=== PATIENT | male | born 1940 | race Caucasian/White ===

== ENCOUNTER 2019-01-19 03:33 | Inpatient (IN) | payer MEDICARE ==
[~2019-01-19] VITALS: Ht 157.5 cm; Wt 61.2 kg
[2019-01-19 05:49] VITALS: BP 114/68
[2019-01-19 07:58] VITALS: BP 106/58
--- NOTE | 2019-01-19 10:13 | NUR ---
Stacey consult called in via [facility], community integration specialist at 0800.
--- NOTE | 2019-01-19 10:57 | PDOC2 ---
GI CONSULT Reason For Consult: GI Bleed HPI: HPI: 78 y/o male transferred from [facility]. History from pt and (Laney). Yesterday passed bright and dark red blood w/ stool several times - last occurred around midnight. Had some dizziness. Denies n/v, abd pain, and melena. Labs at [facility]: Hgb 11, MCV 101, plt 86, INR 7.8, BUN 35, Cr 1.2, ALT 89. They say he was given vit K. Labs are pending here this morning. No reflux/heartburn, dysphagia, or weight loss. Increased appetite recently. No diarrhea. Has some constipation prior to bleeding that resolved w/ a stool softener. Previous EGD and several colonoscopies @ [facility] - was told her has GERD and hemorrhoids - thinks last colonoscopy about 5 years ago. No GB, liver, pancreas, or PUD history. Has some sort of bowel resection after an accident. H/o A Fib and MM - sees heme/onc at [facility], has been on steroids recently and has been on Warfarin since diagnosis in 1999. Chronic back pain on hydrocodone. No NSAIDs. Has been waiting for pain meds for hours and is hungry. PMH: PMH: MM, blood clots, A Fib, HTN, BPH, allergic rhinitis IVC filter, chemo, bowel resection (after trauma), pacemaker, vertebroplasty, hernia repairs FH: Family History: No pertinent hx Social History: Smoke: No ALCOHOL: none Drugs: None ROS: GEN: Denies fevers, chills, sweats HEENT: Denies blurred vision, sore throat CV: Denies chest pain RESP: Denies shortness of air, cough GI: Per HPI : Denies hematuria, dysuria ENDO: Denies weight changes NEURO: +dizziness MSK: +back pain SKIN: Denies jaundice, pruritus Vitals: Vitals: Vital Signs Date Time Temp Pulse Resp B/P (MAP) Pulse Ox O2 Delivery O2 Flow Rate FiO2 01/19/19 07:58 98.4 94 24 106/58 (74) 98 Room Air 98.4 Allergies: Coded Allergies: Penicillins (Verified Allergy, Mild, Rash, 01/19/19) doxycycline (Verified Allergy, Mild, Unknown, 01/19/19) PE: GEN: NAD HEENT: Atraumatic, PERRL LUNGS: CTAB anteriorly HEART: mildly tachycardic ABD: NABS, S/ND/NT EXTREMITY: No edema SKIN: No rashes, no jaundice NEURO/PSYCH: A & O 3 A/P: A/P: Hematochezia, dizziness Anemia, thrombocytopenia, Coumadin coagulopathy H/o MM and A Fib CRC screen - past colonoscopies @ [facility] Hemorrhoids H/o bowel resection Chronic back pain -- Received vit K @ [facility], awaiting recheck of labs here. Reviewed w/ Propeck - check bleeding scan. Continue NPO, add IV PPI. Will ask for colonoscopy and EGD records from [facility]. He c/o waiting a long time for pain meds for chronic back pain - defer to Dr. Donaldson. JOHN CULP Jan 19, 2019 10:57
[2019-01-19 11:00] VITALS: BP 120/65
[2019-01-19 11:01] LABS: BASO % 0 % (0-3); EOS # 0.1 x10^3/uL (0.0-0.7); EOS % 2 % (0-3); HEMATOCRIT 26.4 % (39.0-53.0); LYMPH # 0.7 x10^3/uL (1.0-4.8); LYMPH % 15 % (24-48); MEAN CORPUSCULAR HEMOGLOBIN 34 pg (25-35); MEAN CORPUSCULAR HGB CONC 34 g/dL (31-37); MEAN CORPUSCULAR VOLUME 100 fL (79-100); MONO # 0.8 x10^3/uL (0.0-1.1); MONO % 15 % (0-9); NEUT # 3.4 x10^3/uL (1.8-7.7); NEUT % 68 % (31-73); PLATELET COUNT 76 x10^3/uL (140-400); RED BLOOD COUNT 2.65 x10^6/uL (4.30-5.70); RED CELL DISTRIBUTION WIDTH 14.4 % (11.5-14.5)
[2019-01-19 11:10] LABS: PROTHROMBIN TIME PATIENT 18.7 SEC (11.7-14.0)
[2019-01-19 11:14] LABS: CALCIUM 7.4 mg/dL (8.5-10.1); CREATININE 0.8 mg/dL (0.7-1.3); GFR 93.7; POTASSIUM 3.6 mmol/L (3.5-5.1)
[2019-01-19] MEDS ORDERED: HEPARIN for NUC MED 500 UNIT/5 ML DISP.SYRIN. IV ONE (11:15)
[2019-01-19] MEDS ORDERED: ONDANSETRON PF 4 MG/2 ML VIAL. IVP PRN (11:15)
[2019-01-19] MEDS ORDERED: HEPARIN PF 500 UNIT/5 ML DISP.SYRIN. IVP ONE (11:30)
[2019-01-19] MEDS: IV NORMAL SALINE 1000ML BAG 1,000 ML IV SCH ×2 (11:45→22:31)
[2019-01-19] MEDS ORDERED: PANTOPRAZOLE IV PUSH 40 MG VIAL. IVP SCH (12:00)
--- NOTE | 2019-01-19 12:06 | PDOC2 ---
RENAN ANDERSEN ECHO VASC TECH 01/19/19 1206: CARDIAC CONSULT DATE OF CONSULT Date of Consult DATE: 01/19/19 TIME: 11:46 REASON FOR CONSULT Reason for Consult: AFIB REFERRING PHYSICIAN Referring Physician: Mendoza SOURCE Source: Caregiver (wpouse), Chart review, Patient HISTORY OF PRESENT ILLNESS HISTORY OF PRESENT ILLNESS This is a 78 yo male admitted for noted rectal bleeding. He was initially at [facility]. His rectal bleed started yesterday. He also has been having lightheadedness this morning. He is on coumadin, has AFIB and multiple myeloma. Upon admission to [facility] his INR was noted at 7.8. Prior to this last 2 days, he has been doing well, no palpitations, SOA and no chest pain. No fever or chills and no abd pain nor n/v. He has chronic [facility]ib [facility]. No hx of CAD. Presently he is drowsy due to morphine use to make him comfortable for the GI bleed scan. PAST MEDICAL HISTORY Cardiovascular: HTN Pulmonary: No pertinent hx CENTRAL NERVOUS SYSTEM: Periperal neuropathy (chemo related) GI: Other (short bowel syndrome) Heme/Onc: Cancer (multiple myeloma diagnosed in 1999), Other (DVT) Hepatobiliary: No pertinent hx Psych: No pertinent hx Musculoskeletal: Osteoarthritis Infectious disease: Herpes zoster (?) ENT: Allergic Rhinitis, Other (glaucoma) Renal/: Benign prostatic enlarg. Endocrine: Osteoporosis Dermatology: No pertinent hx PAST SURGICAL HISTORY Past Surgical History: Pacemaker (initially placed in 2005 then had generator change unknown yr. ), Other (Portacath placement; IVC filter; bowel resection; autologous transplant) FAMILY HISTORY Family History noncontributory SOCIAL HISTORY Smoke: No ALCOHOL: none Drugs: None Lives: with Family ALLERGIES ALLERGIES: Coded Allergies: Penicillins (Verified Allergy, Mild, Rash, 01/19/19) doxycycline (Verified Allergy, Mild, Unknown, 01/19/19) ROS Review of System 14 point ROS evaluated with pertinent positives noted per HPI PHYSICAL EXAM General: Oriented X3, Cooperative, No acute distress HEENT: Atraumatic, Mucous membr. moist/pink Heart: No murmurs, Other (AFIB) Abdomen: Soft, No tenderness Extremities: No cyanosis, No edema Skin: No breakdown, No significant lesion Neuro: Normal speech, Sensation intact Psych/Mental Status: Other (drowsy) MUSCULOSKELETAL: Osteoarthritic changes both hands VITALS/I&O VITALS/I&O: Vital Signs Date Time Temp Pulse Resp B/P (MAP) Pulse Ox O2 Delivery O2 Flow Rate FiO2 01/19/19 11:00 98.6 107 20 120/65 (83) 99 Room Air 98.6 LABS Lab: Laboratory Tests Test 01/19/19 10:40 White Blood Count 5.0 x10^3/uL (4.0-11.0) Red Blood Count 2.65 x10^6/uL (4.30-5.70) L Hemoglobin 9.0 g/dL (13.0-17.5) L Hematocrit 26.4 % (39.0-53.0) L Mean Corpuscular Volume 100 fL (79-100) Mean Corpuscular Hemoglobin 34 pg (25-35) Mean Corpuscular Hemoglobin Concent 34 g/dL (31-37) Red Cell Distribution Width 14.4 % (11.5-14.5) Platelet Count 76 x10^3/uL (140-400) L Neutrophils (%) (Auto) 68 % (31-73) Lymphocytes (%) (Auto) 15 % (24-48) L Monocytes (%) (Auto) 15 % (0-9) H Eosinophils (%) (Auto) 2 % (0-3) Basophils (%) (Auto) 0 % (0-3) Neutrophils # (Auto) 3.4 x10^3/uL (1.8-7.7) Lymphocytes # (Auto) 0.7 x10^3/uL (1.0-4.8) L Monocytes # (Auto) 0.8 x10^3/uL (0.0-1.1) Eosinophils # (Auto) 0.1 x10^3/uL (0.0-0.7) Basophils # (Auto) 0.0 x10^3/uL (0.0-0.2) Prothrombin Time 18.7 SEC (11.7-14.0) H Prothrombin Time INR 1.6 (0.8-1.1) H Sodium Level 139 mmol/L (136-145) Potassium Level 3.6 mmol/L (3.5-5.1) Chloride Level 107 mmol/L (98-107) Carbon Dioxide Level 26 mmol/L (21-32) Anion Gap 6 (6-14) Blood Urea Nitrogen 25 mg/dL (8-26) Creatinine 0.8 mg/dL (0.7-1.3) Estimated GFR (Cockcroft-Gault) 93.7 Glucose Level 82 mg/dL (70-99) Calcium Level 7.4 mg/dL (8.5-10.1) L Laboratory Tests 01/19/19 10:40 Laboratory Tests 01/19/19 10:40 ASSESSMENT/PLAN ASSESSMENT/PLAN 1. Acute GI bleed: appears to be lower culprit. GI bleed scan pending 2. Anemia: from 11 to 9 Hgb 3. Coagulopathy: INR at 7.8 due to coumadin then 1.6 post Vit K 4. Prerenal azotemia: due to dehydration 5. Chronic AFIB: initially with RVR with concurrent GI bleed and back pain 6. PPM in situ 7. Hx of DVT/IVC filter 8. Hx of multiple myeloma: on ledalinomide Recommendations 1. TTE, Mg. CXR. Trend H/H 2. Metoprolol IV x1 while NPO. Will restart PO when able (he also takes metopr at home). Hold home cardizem CD pending BP trend. 3. Hold OAC. Await GI eval. 4. Replace Mg 5. Will check device once brand is known. OLESYA LANCASTER MD 01/19/192028: CARDIAC CONSULT ASSESSMENT/PLAN ASSESSMENT/PLAN Patient seen and examined. Agree with GARMENT TURNER's assessment and plan. Perm atrial fib rate controlled Agree with holding OAC due to GIB We will have his PPM interrogated 2D echo showed normal LVF Continue current workup per GI team Thank you for your consultation RENAN ANDERSEN APRN Jan 19, 2019 12:06 OLESYA LANCASTER MD Jan 19, 2019 20:29
[2019-01-19] MEDS ORDERED: METOPROLOL TART IMMED RELEASE 25 MG TABLET. PO ONE (12:15)
--- NOTE | 2019-01-19 12:52 | HP ---
ADMIT DATE: 01/19/2019 HISTORY OF PRESENT ILLNESS: The patient is a 78-year-old male patient who was referred to [facility] at the [place] with rectal bleeding. He started to have rectal bleeding yesterday. He describes it as a dark red color. He is not sure if there is any stool mixed in it everytime, sometimes just blood. He had several episodes, but he is unsure how many. He is on Coumadin. His INR checked 2 weeks ago and was 4. The patient decided to come in early this morning because he was feeling lightheaded and dizzy when he went to the bathroom. He thought this was not a good sign and he did not want to pass out at home. The patient does not have any history of GI bleed or ulcers. He has a port because of his multiple myeloma. He is unsure why he is on Coumadin. He denies any fevers or chills, although his said that he was diagnosed with bilateral lower extremity DVT about 20 years ago and has since been on Coumadin. PAST MEDICAL HISTORY: Significant for atrial fibrillation. He also has multiple myeloma. He has glaucoma, benign prostatic hypertrophy. PAST SURGICAL HISTORY: Significant for hernia repair and apparently had also short bowel syndrome according to his . ALLERGIES: HE IS ALLERGIC TO PENICILLIN AND DICYCLOMINE. FAMILY HISTORY: Noncontributory. SOCIAL HISTORY: He is , lives with his . He apparently does not smoke, drink alcohol or use any recreational drugs. REVIEW OF SYSTEMS: As listed in history of present illness. PHYSICAL EXAMINATION: GENERAL: On arrival to the Emergency Room at [facility], he was pale, but no jaundice, cyanosis or thyromegaly. No jugular venous distention. No limb edema. VITAL SIGNS: His heart rate was 100, blood pressure was 102/63, temperature was 97.4, respiratory rate was 18, and oxygen saturation 100% on room air. HEAD, EYES, EARS, NOSE AND THROAT: Showed normocephalic, atraumatic. NECK: Supple. HEART: Showed normal first and second heart sounds with no gallop, rub or murmur. CHEST: Clear to auscultation. No crepitation or rhonchi. ABDOMEN: Distended, soft, nontender. No guarding or rigidity. No organomegaly. All hernial orifice intact. Bowel sounds normal. NEUROLOGIC: He was awake, alert, responding appropriately. All cranial nerves intact. EXTREMITIES: He moves extremities without difficulty. LABORATORY DATA: There showed a white cell count 6,100, hemoglobin 11, hematocrit 33.5, MCV 101 and platelet count of 86,000. His prothrombin time was 81.1, INR of 7.8, aPTT was 46. His chemistry showed a serum sodium 139, potassium 3.9, chloride 103, bicarbonate 28, anion gap of 8, BUN 35, creatinine 1.2, estimated GFR was 58 mL per minute. His glucose was 156, calcium was 7.9. Total bilirubin is 3, normal. ALT slightly elevated. Alkaline phosphatase is normal. Total protein was 5, albumin 2.5. The patient was given Coumadin 5 mg subcutaneously and was given a liter of fluid as well as he has received a total of 25 mg of vitamin K. The patient was transferred to [facility], and his repeat lab work showed that his white cell count was 5000, hemoglobin 9, hematocrit 26.4, MCV 100, and platelet count of 76,000. His chemistry showed a serum sodium of 139, potassium 3.6, chloride 107, bicarbonate 26, anion gap of 6, BUN 25, creatinine 0.8, estimated GFR was 94 mL per minute. His glucose was 82, calcium was 7.4. His prothrombin time was 18.7, INR 1.6 with a plan to monitor his H and H and obviously transfuse him. Plan is to keep him n.p.o. We will continue with IV fluid as well as IV proton pump inhibitor. We have consulted the Gastroenterology team and decide on further management accordingly. He is currently on following medications: He is on acyclovir 400 mg tablet once a day for viral infection, cetirizine 10 mg once a day, dexamethasone 4 mg, he takes 5 tablets by mouth every week. He is on diltiazem 240 mg daily, gabapentin 300 mg 3 times a day, hydrocodone 10/325 one tablet every 6 hours. He is on lenalidomide for Revlimid 25 mg capsule once a day. He is on loperamide 2 mg by mouth as needed, metoprolol tartrate 25 mg twice a day. He is on timolol maleate 0.5% one drop to both eyes every morning. He is on Coumadin 2 mg daily. He is on Ambien 5 mg at bedtime. He is on carboxymethylcellulose 0.5% solution 1 drop to both eyes 4 times a day. He is on prochlorperazine 10 mg every 8 hours, tamsulosin 0.4 mg capsule at bedtime for enlarged prostate. Plan is to switch him to IV pain medication. I have consulted the Cardiology also for atrial fibrillation with rapid ventricular response. We will monitor his H and H every 6 hours and transfuse him as needed if the hemoglobin dropped down to 7 or less than 7. LINDA PATEL MD DR: ERIKA/oksana JOB#: [id number] / [id number]
--- NOTE | 2019-01-19 13:42 | EKG ---
[facility] [address] [place] [address] Test Date: 2019-01-19 Test Time: 14:35:56 Pat Name: ESTHER RODRIGUEZ Department: Room: 674 1 Gender: M Terminal Operator: JOHANN : 1940 Requested By: RENAN ANDERSEN Order Number: [id number] Reading MD: Brian Abrams MD Measurements Intervals Donald Rate: 119 P: DC: QRS: -20 QRSD: 80 T: 20 QT: 280 QTc: 400 Interpretive Statements ATRIAL FIBRILLATION WITH CONTROLLED VENTRICULAR RESPONSE NON-SPECIFIC ST/T CHANGES Electronically Signed On 01-30-2019 9:32:38 CDT by Brian Abrams MD
[2019-01-19] MEDS ORDERED: MAGNESIUM SULFATE 2GM 50 ML IV ONE (14:00)
[2019-01-19] MEDS ORDERED: METOPROLOL TARTRATE 5 MG/5 ML VIAL. IVP ONE (14:30)
--- NOTE | 2019-01-19 14:57 | RAD ---
Examination: GI BLEED History: Hematochezia, coagulopathy Comparison/Correlation: None Findings: 33 mCi technetium 99m UltraTag was utilized for GI bleed scan examination. Imaging was performed up to 15 minutes. Distribution of radiotracer is unremarkable with no abnormal examination radiotracer to suggest active GI bleeding. Urinary bladder is identified. Impression: No evidence of GI bleed. Electronically signed by: Juan Robert MD (01/19/2019 2:54 PM) [facility]
[2019-01-19 15:00] VITALS: BP 115/65
--- NOTE | 2019-01-19 15:31 | RAD ---
Single view of the chest. 01/19/2019 12:11 PM Indication: Atrial fibrillation Comparison: None available Findings: There is a right internal jugular [place] port. The tip is poorly visualized on this exam. Inspiratory volumes are low. No pneumothorax is seen. Probable bibasilar atelectasis noted. There is a dual-lead pacemaking device from a left subclavian approach. No acute osseous changes are identified. IMPRESSION: Low lung volumes probable bibasilar atelectasis. Consider follow-up two-view chest radiograph. Electronically signed by: Byron Trimble MD (01/19/2019 3:29 PM) [id number]
[2019-01-19] MEDS: HYDROCORTISONE SOD SUCC/PF 100 MG/2 ML VIAL. IV SCH ×2 (15:52→22:31)
[2019-01-19 17:12] LABS: HEMATOCRIT 25.7 % (39.0-53.0); HEMOGLOBIN 8.8 g/dL (13.0-17.5); RED BLOOD COUNT 2.59 x10^6/uL (4.30-5.70); RED CELL DISTRIBUTION WIDTH 14.5 % (11.5-14.5); WHITE BLOOD COUNT 5.1 x10^3/uL (4.0-11.0)
[2019-01-19] MEDS: MORPHINE SULFATE 4 MG/ML VIAL. IV PRN (17:22)
[2019-01-19 17:27] LABS: PROTHROMBIN TIME PATIENT 15.7 SEC (11.7-14.0)
[2019-01-19 17:30] LABS: CALCIUM 7.5 mg/dL (8.5-10.1); CREATININE 0.9 mg/dL (0.7-1.3); GFR 81.8; POTASSIUM 3.7 mmol/L (3.5-5.1)
[2019-01-19] MEDS ORDERED: ZOLPIDEM 5 MG TABLET. PO PRN (18:00)
--- NOTE | 2019-01-19 18:01 | CARD ---
MR#: [id number] Date of Study: 01/19/2019 Ordering Physician: RENAN ANDERSEN, Referring Physician: RENAN ANDERSEN, Tech: Yaa Joshi APPROVED REPORT EXAM: Two-dimensional and M-mode echocardiogram with Doppler and color Doppler. Other Information Quality : AverageHR: 115bpm INDICATION Atrial Fibrillation Surgery/Intervention Pacemaker: Date: 2005 2D DIMENSIONS Left Atrium(2D)4.4 (1.6-4.0cm)IVSd1.4 (0.7-1.1cm) Aortic Root(2D)3.7 (2.0-3.7cm)LVDd3.9 (3.9-5.9cm) LVOT Diameter2.0 (1.8-2.4cm)PWd0.7 (0.7-1.1cm) LVDs2.8 (2.5-4.0cm)FS (%) 29.8 % SV38.9 mlLVEF(%)57.5 (>50%) Aortic Valve AoV Peak Semaj.255.7cm/sAoV VTI35.6cm AO Peak GR.26.2mmHgLVOT VTI 17.29cm AO Mean GR.17mmHgAI P 1/2 [id number] Mitral Valve MV E Bxcvynpl167.5cm/sMV DECEL IFQA14ac MV A Tptgyhek11.4cm/sE/A Ratio1.7 TDI Lateral E' P. V9.01cm/sMedial E' P. V7.66cm/s E/Lateral E'12.8E/Medial E'15.1 Tricuspid Valve TR P. Isazdipl107ph/sRAP YECMKNSV1yxVh TR Peak Gr.18gxYcPMHE32ggFq Pulmonary Vein S1 Brckydhl16.8cm/sS2 Saajmhoa65.16cm/s D2 Aeyfllza10.2cm/sPVa gyrsyfvy31ecbm LEFT VENTRICLE The left ventricle is normal size. There is mild concentric left ventricular hypertrophy. The left ve ntricular systolic function is normal. The Ejection Fraction is 50-55%. Wall motion consistent with c onduction abnormality Diastology indeterminate due to atrial fibrillation. RIGHT VENTRICLE The right ventricle is normal size. There is normal right ventricular wall thickness. The right ventr icular systolic function is normal. There are device leads in the right ventricle and atrium. ATRIA The left atrium is mildly to moderately dilated. The right atrium is borderline dilated. There is a p acemaker lead seen in the right atrium. The interatrial septum is intact with no evidence for an atri al septal defect or patent foramen ovale as noted on 2-D or Doppler imaging. AORTIC VALVE The aortic valve is calcified and displays decreased opening. Doppler and Color Flow revealed trace a ortic regurgitation. There is moderate valvular aortic stenosis Calculated aortic valve maximum press ure gradient of 28 mmHg and mean pressure gradient of 17 mmHg. MITRAL VALVE Mitral annular calcification is moderate. There is no evidence of mitral valve prolapse. There is no mitral valve stenosis. Doppler and Color-flow revealed mild mitral regurgitation. TRICUSPID VALVE The tricuspid valve is normal in structure and function. Doppler and Color Flow revealed mild tricusp id regurgitation with an estimated PAP of 35 mmHg. There is no tricuspid valve stenosis. PULMONIC VALVE The pulmonary valve is normal in structure and function. Doppler and Color Flow revealed trace pulmon ic valvular regurgitation. GREAT VESSELS The aortic root is normal in size. The IVC is normal in size and collapses >50% with inspiration. PERICARDIAL EFFUSION There is no evidence of significant pericardial effusion. Critical Notification Critical Value: No <Conclusion> The left ventricle is normal size. The left ventricular systolic function is normal. The Ejection Fraction is 50-55%. There is mild concentric left ventricular hypertrophy. There is moderate valvular aortic stenosis Calculated aortic valve maximum pressure gradient of 28 mmHg and mean pressure gradient of 17 mmHg. Doppler and Color Flow revealed trace aortic regurgitation. Doppler and Color-flow revealed mild mitral regurgitation. Doppler and Color Flow revealed mild tricuspid regurgitation with an estimated PAP of 35 mmHg. There are device leads in the right ventricle and atrium. Signed by : Richard Gant MD Electronically Approved : 01/19/2019 18:01:19
[2019-01-19 19:30] VITALS: BP 116/58
[2019-01-19] MEDS: METOPROLOL TART IMMED RELEASE 25 MG TABLET. PO SCH ×2 (21:00→22:32)
[2019-01-19] MEDS: TAMSULOSIN 0.4 MG CAP.ER.24H. PO SCH (22:33)
[2019-01-19] MEDS: GABAPENTIN 300 MG CAPSULE. PO SCH (22:33)
[2019-01-19 23:30] VITALS: BP 119/63
[2019-01-20 03:30] VITALS: BP 130/74
[2019-01-20] MEDS: HYDROCORTISONE SOD SUCC/PF 100 MG/2 ML VIAL. IV SCH ×3 (05:46→23:17)
[2019-01-20 06:14] LABS: HEMATOCRIT 25.4 % (39.0-53.0); HEMOGLOBIN 8.5 g/dL (13.0-17.5); RED BLOOD COUNT 2.52 x10^6/uL (4.30-5.70); RED CELL DISTRIBUTION WIDTH 14.9 % (11.5-14.5); WHITE BLOOD COUNT 4.4 x10^3/uL (4.0-11.0)
[2019-01-20 06:35] LABS: ALBUMIN/GLOBULIN RATIO 0.8 (1.0-1.7); CALCIUM 7.1 mg/dL (8.5-10.1); CREATININE 0.7 mg/dL (0.7-1.3); GFR 109.4; POTASSIUM 3.7 mmol/L (3.5-5.1); TOTAL BILIRUBIN 0.7 mg/dL (0.2-1.0); TOTAL PROTEIN 4.4 g/dL (6.4-8.2)
[2019-01-20 07:38] VITALS: BP 119/65
[2019-01-20] MEDS: MULTIVITAMIN with MINERAL TABLET. PO SCH (08:29)
[2019-01-20] MEDS: GABAPENTIN 300 MG CAPSULE. PO SCH ×3 (08:30→21:54)
[2019-01-20] MEDS: MORPHINE SULFATE 4 MG/ML VIAL. IV PRN (08:30)
[2019-01-20] MEDS: CETIRIZINE HCL 10 MG TABLET. PO SCH (08:30)
[2019-01-20] MEDS: PANTOPRAZOLE 40 MG TABLET.DR. PO SCH (08:30)
[2019-01-20] MEDS: METOPROLOL TART IMMED RELEASE 25 MG TABLET. PO SCH ×2 (08:30→08:31)
[2019-01-20] MEDS: ACYCLOVIR 200 MG CAPSULE. PO SCH (08:30)
[2019-01-20] MEDS: TIMOLOL 0.5% OPHTH SOLUTION 5ML BOTTLE. OU SCH (08:31)
--- NOTE | 2019-01-20 09:20 | PDOC ---
Subjective: Subjective: I asked about further bleeding - "not that I know of." I asked how he was feeling - he shook his head. I asked what specifically was bothering him and he remained quiet. He wants to know SPECIFICALLY when he can have more to eat than clear liquids - I explained the rationale for starting w/ clear liquids and told him he could eat more now that he hasn't had further bleeding - he laughed and rolled his eyes. Wants to know where his glasses are. Objective: Objective: No GI concerns per nurse, pt is not very pleasant. Vital Signs: Vital Signs Date Time Temp Pulse Resp B/P (MAP) Pulse Ox O2 Delivery O2 Flow Rate FiO2 01/20/19 09:00 99 Room Air 01/20/19 08:31 72 119/65 01/20/19 07:38 98.6 18 98.6 Labs: Laboratory Tests Test 01/19/19 10:40 01/19/19 17:00 01/20/19 05:50 White Blood Count 5.0 x10^3/uL 5.1 x10^3/uL 4.4 x10^3/uL Red Blood Count 2.65 x10^6/uL 2.59 x10^6/uL 2.52 x10^6/uL Hemoglobin 9.0 g/dL 8.8 g/dL 8.5 g/dL Hematocrit 26.4 % 25.7 % 25.4 % Mean Corpuscular Volume 100 fL 100 fL 101 fL Mean Corpuscular Hemoglobin 34 pg 34 pg 34 pg Mean Corpuscular Hemoglobin Concent 34 g/dL 34 g/dL 34 g/dL Red Cell Distribution Width 14.4 % 14.5 % 14.9 % Platelet Count 76 x10^3/uL 77 x10^3/uL 82 x10^3/uL Neutrophils (%) (Auto) 68 % Lymphocytes (%) (Auto) 15 % Monocytes (%) (Auto) 15 % Eosinophils (%) (Auto) 2 % Basophils (%) (Auto) 0 % Neutrophils # (Auto) 3.4 x10^3/uL Lymphocytes # (Auto) 0.7 x10^3/uL Monocytes # (Auto) 0.8 x10^3/uL Eosinophils # (Auto) 0.1 x10^3/uL Basophils # (Auto) 0.0 x10^3/uL Prothrombin Time 18.7 SEC 15.7 SEC Prothromb Time International Ratio 1.6 1.3 Sodium Level 139 mmol/L 140 mmol/L 144 mmol/L Potassium Level 3.6 mmol/L 3.7 mmol/L 3.7 mmol/L Chloride Level 107 mmol/L 106 mmol/L 109 mmol/L Carbon Dioxide Level 26 mmol/L 29 mmol/L 29 mmol/L Anion Gap 6 5 6 Blood Urea Nitrogen 25 mg/dL 20 mg/dL 16 mg/dL Creatinine 0.8 mg/dL 0.9 mg/dL 0.7 mg/dL Estimated GFR (Cockcroft-Gault) 93.7 81.8 109.4 Glucose Level 82 mg/dL 92 mg/dL 111 mg/dL Calcium Level 7.4 mg/dL 7.5 mg/dL 7.1 mg/dL Magnesium Level 1.5 mg/dL BUN/Creatinine Ratio 23 Total Bilirubin 0.7 mg/dL Aspartate Amino Transf (AST/SGOT) 18 U/L Alanine Aminotransferase (ALT/SGPT) 53 U/L Alkaline Phosphatase 36 U/L Total Protein 4.4 g/dL Albumin 2.0 g/dL Albumin/Globulin Ratio 0.8 PE: GEN: NAD, sitting on edge of bed eating clears LUNGS: room air HEART: RRR ABD: S/ND/NT NEURO/PSYCH: A & O 3, flat A/P: Hematochezia, Coumadin coagulopathy - resolved Anemia - Hgb from 11 to 8, now stable H/o MM and A Fib, chronic back pain -- ADAT - orders in for this yesterday - d/w nurse. Will review timing of restarting Coumadin w/ Dr. Ibarra. Consider addition of PO iron. Requested records from previous 'scopes yesterday - will check if anything received. JOHN CULP Jan 20, 2019 09:20
--- NOTE | 2019-01-20 09:50 | PN ---
DATE: 01/20/2019 SUBJECTIVE: The patient is resting flat, sleeping comfortably, in no apparent distress. On questioning him, he denied any complaint. In particular, he has no further episodes of hematochezia. Denied any nausea, vomiting, hematemesis. Denied any abdominal pain. PHYSICAL EXAMINATION: GENERAL: When I examined him, he looked somewhat pale, but no jaundice, cyanosis or thyromegaly. No jugular venous distension. No limb edema. VITAL SIGNS: His heart rate was 72, blood pressure was 119/65, temperature was 98.6, respiratory rate was 18 and oxygen saturation was 99% on room air. HEAD, EYES, EARS, NOSE AND THROAT: Showed normocephalic, atraumatic. NECK: Supple. HEART: Showed normal first and second heart sounds. No gallop or murmur. CHEST: Clear to auscultation. No crepitation or rhonchi. ABDOMEN: Distended, soft, nontender. NEUROLOGIC: He is awake, alert, responding appropriately. All cranial nerves are intact. He moves extremities without difficulty. His intake was 280, output was 1000. LABORATORY DATA: As of this morning, his white cell count was 4400, hemoglobin 8.5, hematocrit 25, MCV 101 and platelet count of 82,000. His chemistry showed a serum sodium 144, potassium 3.7, chloride 109, bicarbonate 29, anion gap of 6, BUN 16, creatinine 0.7, estimated GFR was 109 mL per minute, his glucose 111, calcium was 7.1, magnesium was 1.5. Total bilirubin, AST, ALT, alkaline phosphatase were normal. Total protein was 4.4, albumin 2. His prothrombin time was 15.7, INR 1.3. ASSESSMENT: 1. Acute blood loss anemia, gastrointestinal bleed, source not clear. He did have a gastrointestinal bleed, but showed the distribution of radiotracer is unremarkable with no abnormal examination to suggest active gastrointestinal bleed. Urinary bladder is identified. Other medical problems include multiple myeloma. 2. Chronic atrial fibrillation. 3. Glaucoma. 4. Benign prostatic hypertrophy. PLAN: To advance his diet. I would reconcile all his medications. LINDA PATEL MD DR: ERIKA/oksana JOB#: [id number] / [id number]
[2019-01-20] MEDS: MAGNESIUM OXIDE 400 MG TABLET PO SCH ×3 (10:00→21:54)
--- NOTE | 2019-01-20 11:50 | PDOC ---
RENAN ANDERSEN INJECTION MOLDING MACHINE TENDER 01/20/19 1150: CARDIO Progress Notes Date and Time Date of Service 01/20/2019 Time of Evaluation 1130 Subjective Subjective: No Chest Pain, No shortness of breath, No Palpitations Vitals Vitals Vital Signs Date Time Temp Pulse Resp B/P (MAP) Pulse Ox O2 Delivery O2 Flow Rate FiO2 01/20/19 09:00 99 Room Air 01/20/19 08:31 72 119/65 01/20/19 07:38 98.6 18 98.6 Weight Weight [ ] Input and Output Intake and Output Intake and Output 01/20/19 06:59 Intake Total 280 ml Output Total 1000 ml Balance -720 ml Intake Oral 280 ml Output Urine Total 1000 ml Laboratory Labs Laboratory Tests Test 01/19/19 17:00 01/20/19 05:50 White Blood Count 5.1 x10^3/uL (4.0-11.0) 4.4 x10^3/uL (4.0-11.0) Red Blood Count 2.59 x10^6/uL (4.30-5.70) 2.52 x10^6/uL (4.30-5.70) Hemoglobin 8.8 g/dL (13.0-17.5) 8.5 g/dL (13.0-17.5) Hematocrit 25.7 % (39.0-53.0) 25.4 % (39.0-53.0) Mean Corpuscular Volume 100 fL (79-100) 101 fL (79-100) Mean Corpuscular Hemoglobin 34 pg (25-35) 34 pg (25-35) Mean Corpuscular Hemoglobin Concent 34 g/dL (31-37) 34 g/dL (31-37) Red Cell Distribution Width 14.5 % (11.5-14.5) 14.9 % (11.5-14.5) Platelet Count 77 x10^3/uL (140-400) 82 x10^3/uL (140-400) Prothrombin Time 15.7 SEC (11.7-14.0) Prothromb Time International Ratio 1.3 (0.8-1.1) Sodium Level 140 mmol/L (136-145) 144 mmol/L (136-145) Potassium Level 3.7 mmol/L (3.5-5.1) 3.7 mmol/L (3.5-5.1) Chloride Level 106 mmol/L (98-107) 109 mmol/L (98-107) Carbon Dioxide Level 29 mmol/L (21-32) 29 mmol/L (21-32) Anion Gap 5 (6-14) 6 (6-14) Blood Urea Nitrogen 20 mg/dL (8-26) 16 mg/dL (8-26) Creatinine 0.9 mg/dL (0.7-1.3) 0.7 mg/dL (0.7-1.3) Estimated GFR (Cockcroft-Gault) 81.8 109.4 Glucose Level 92 mg/dL (70-99) 111 mg/dL (70-99) Calcium Level 7.5 mg/dL (8.5-10.1) 7.1 mg/dL (8.5-10.1) BUN/Creatinine Ratio 23 (6-20) Total Bilirubin 0.7 mg/dL (0.2-1.0) Aspartate Amino Transf (AST/SGOT) 18 U/L (15-37) Alanine Aminotransferase (ALT/SGPT) 53 U/L (16-63) Alkaline Phosphatase 36 U/L (46-116) Total Protein 4.4 g/dL (6.4-8.2) Albumin 2.0 g/dL (3.4-5.0) Albumin/Globulin Ratio 0.8 (1.0-1.7) Physical Exam HEENT: Neck Supple W Full Motion Chest: Symmetric LUNGS: Clear to Auscultation Heart: irregularly irregular (AFIB) Abdomen: Soft N/T Extremities: No Calf Tenderness Neurology: alert, oriented, follow commands Assessment Assessment 1. Acute GI bleed: appears to be lower culprit 2. Anemia: Hgb 8.5 3. Coagulopathy: INR at 7.8 due to coumadin then 1.3 post Vit K 4. Prerenal azotemia: due to dehydration. resolved 5. Chronic AFIB: rate at 100-120. EF and LV function normal 6. PPM in situ: AFIB 7. Hx of DVT/IVC filter 8. Hx of multiple myeloma: on ledalinomide Recommendations 1. Increase lopressor. Stop cardizem for now. 2. Discussed with GI ok to resume coumadin for stroke prevention. Would recommend home INR monitoring. 3. Will check device once brand is known. 4. Supportive care 5. Encouraged to follow up with outpt cardiology next week to further reeval his meds. Will need INR Wednesday. OLESYA LANCASTER MD 01/20/19 1534: CARDIO Progress Notes Assessment Assessment Patient seen and examined. Agree with OFFSHORING MANAGER's assessment and plan. Perm AF rate relatively well controlled Continue current management of GIB per GI team 2D echo showed normal LVF Follow up with primary sharepoint web developer RENAN ANDERSEN APRN Jan 20, 2019 11:50 OLESYA LANCASTER MD Jan 20, 2019 15:34
[2019-01-20 11:51] VITALS: BP 101/40
[2019-01-20] MEDS ORDERED: METOPROLOL TART IMMED RELEASE 25 MG TABLET. PO ONE (12:00)
[2019-01-20] MEDS: IV NORMAL SALINE 1000ML BAG 1,000 ML IV SCH ×2 (15:03→23:23)
[2019-01-20 15:16] VITALS: BP 111/59
[2019-01-20] MEDS ORDERED: WARFARIN 1 MG TABLET. PO ONE (16:00)
--- NOTE | 2019-01-20 16:09 | NUR ---
Pharmacy Warfarin Dosing Note S:Pharmacy consulted to assist with anticoagulation therapy started 01/20/19 with target INR: 2 - 3. INR 7.8 on admission to [facility]. Previous regimen: warfarin 2 mg/day except 1 mg on Wednesday. O:ESTHER RODRIGUEZ is a 78 year old M with Atrial Fibrillation and h/o DVT, s/p IVC filter LABS: Last INR: 1.3 Last HGB: 8.5 Last HCT: 25.4 Last PLT: 82 Previous Regimen: 2 mg daily, except 1 mg on Wednesday Vitamin K given: Y 5 mg IV 01/19(@ [facility]) Drug Interaction Changes: None A:INR of 1.3 is below desired range. Will dose very cautiously due to recent GI bleed and coagulopathy. P: Warfarin dose: 1 mg Today at 1600 Bridge Therapy: None Next INR due 01/21/19 Pharmacy anticoagulation service will continue to follow. MARGE KIMBLE, [facility], 01/20/19 [id number]
[2019-01-20] MEDS ORDERED: WARF2TAB96 PO (16:13)
[2019-01-20] MEDS ORDERED: WARF1TAB69 PO (16:13)
[2019-01-20] MEDS ORDERED: LENA25CA PO (16:13)
[2019-01-20 16:52] LABS: HEMATOCRIT 23.2 % (39.0-53.0); HEMOGLOBIN 7.8 g/dL (13.0-17.5)
[2019-01-20 19:54] VITALS: BP 108/60
[2019-01-20] MEDS: TAMSULOSIN 0.4 MG CAP.ER.24H. PO SCH (21:54)
[2019-01-20] MEDS: METOPROLOL TART IMMED RELEASE 50 MG TABLET. PO SCH (21:55)
[2019-01-20 23:44] VITALS: BP 115/65
[2019-01-21 03:11] VITALS: BP 127/77
[2019-01-21] MEDS: HYDROCORTISONE SOD SUCC/PF 100 MG/2 ML VIAL. IV SCH ×3 (06:54→21:19)
[2019-01-21] MEDS: PANTOPRAZOLE 40 MG TABLET.DR. PO SCH (06:55)
[2019-01-21 07:50] VITALS: BP 149/72
[2019-01-21] MEDS: HYDROcodone/APAP 10/325 1 TAB TABLET PO PRN ×3 (08:01→20:02)
[2019-01-21 08:32] LABS: HEMATOCRIT 25.2 % (39.0-53.0); HEMOGLOBIN 8.5 g/dL (13.0-17.5); RED BLOOD COUNT 2.5 x10^6/uL (4.30-5.70); WHITE BLOOD COUNT 6.8 x10^3/uL (4.0-11.0)
[2019-01-21 08:39] LABS: PROTHROMBIN TIME PATIENT 14.7 SEC (11.7-14.0)
[2019-01-21 09:03] LABS: CALCIUM 7.2 mg/dL (8.5-10.1); CREATININE 0.7 mg/dL (0.7-1.3); GFR 109.4
[2019-01-21 09:06] LABS: POTASSIUM 3.8 mmol/L (3.5-5.1)
[2019-01-21] MEDS: TIMOLOL 0.5% OPHTH SOLUTION 5ML BOTTLE. OU SCH (10:31)
[2019-01-21] MEDS: MULTIVITAMIN with MINERAL TABLET. PO SCH (10:32)
[2019-01-21] MEDS: MAGNESIUM OXIDE 400 MG TABLET PO SCH ×3 (10:32→20:02)
[2019-01-21] MEDS: ACYCLOVIR 200 MG CAPSULE. PO SCH (10:32)
[2019-01-21] MEDS: GABAPENTIN 300 MG CAPSULE. PO SCH ×3 (10:32→20:02)
[2019-01-21] MEDS: CETIRIZINE HCL 10 MG TABLET. PO SCH (10:32)
[2019-01-21] MEDS: METOPROLOL TART IMMED RELEASE 50 MG TABLET. PO SCH ×2 (10:33→20:02)
--- NOTE | 2019-01-21 11:13 | PN ---
DATE: 01/21/2019 SUBJECTIVE: The patient is sitting on the edge of the bed, eating his breakfast comfortably, in no apparent distress. On questioning him, he denied any complaint; in particular, denied any further episodes of hematochezia. Nursing staff attested that his last bowel movement was on 01/19. The patient denied any abdominal pain; denied any nausea or vomiting; denied any hematemesis; denied any dizziness, lightheadedness, or vertigo; however, his hemoglobin and hematocrit are trending down and as of yesterday afternoon, it was 7.8 and 23. This morning, labs are still pending at the time of this dictation. His prothrombin time and INR are still pending also at the time of this dictation. His Coumadin was resumed as per the Cardiology recommendation in collaboration with Gastroenterology Service. OBJECTIVE: GENERAL: When I examined him this morning, he looked pale. No jaundice, cyanosis, or thyromegaly. No jugular venous distension. No lower limb edema. VITAL SIGNS: His heart rate was 55, blood pressure was 127/77, temperature was 97.7, respiratory rate was 16, and oxygen saturation was 98%. HEENT: Normocephalic, atraumatic. NECK: Supple. HEART: Showed normal first and second heart sounds. No gallop, rubs, or murmur. CHEST: Clear to auscultation. No crepitation or rhonchi. ABDOMEN: Distended, soft. NEUROLOGIC: He is awake, alert, responding appropriately. All cranial nerves are intact. He moves extremities without difficulty. LABORATORY DATA: As of yesterday, his hemoglobin was 7.8 and hematocrit 23. As of yesterday, his BUN was 16 and creatinine 0.7. Today's labs are still pending at the time of this dictation. ASSESSMENT: Acute blood loss anemia due to gastrointestinal bleed, source not clear. He did have a bleeding scan that showed that the distribution of the radiotracer is unremarkable with no abnormal examination of the radiotracer to suggest active gastrointestinal bleed. Urinary bladder is identified. Other medical problems include: 1. Chronic atrial fibrillation. 2. Glaucoma. 3. Benign prostatic hypertrophy. 4. Multiple myeloma. PLAN: Discontinue intravenous fluid. We will obviously await the result of the lab work this morning. I will check his hemoglobin again this afternoon and tomorrow morning. LINDA PATEL MD DR: Wayne JOB#: [id number] / [id number]
[2019-01-21 11:35] VITALS: BP 119/75
--- NOTE | 2019-01-21 14:53 | NUR ---
Pharmacy Warfarin Dosing Note S: Pharmacy consulted to assist with anticoagulation therapy started 01/20/19 O: ESTHER RODRIGUEZ is a 78 year old M with Atrial Fibrillation h/o DVT, s/p IVC filter LABS: Last INR: 1.2 Last HGB: 8.5 Last HCT: 25.2 Last PLT: 86 Last dose of 1mg NOT GIVEN given 01/20 Vitamin K given: Y 5 mg IV 01/19(@ [facility]) A:INR of 1.2 is below desired range. Target range for this patient is: 2 -3 P: Warfarin dose: 1 mg Today at 1600 Bridge Therapy: None Next INR due tomorrow Pharmacy anticoagulation service will continue to follow. Yuly Skaggs, [facility], 01/21/19 [id number]
[2019-01-21 15:20] VITALS: BP 113/66
[2019-01-21] MEDS ORDERED: WARFARIN 1 MG TABLET. PO ONE (16:00)
[2019-01-21 19:16] VITALS: BP 102/60
[2019-01-21] MEDS: TAMSULOSIN 0.4 MG CAP.ER.24H. PO SCH (20:02)
[2019-01-21 23:00] VITALS: BP 122/76
[2019-01-22] MEDS: HYDROCORTISONE SOD SUCC/PF 100 MG/2 ML VIAL. IV SCH (06:20)
[2019-01-22 06:39] LABS: HEMATOCRIT 23.6 % (39.0-53.0); RED BLOOD COUNT 2.32 x10^6/uL (4.30-5.70); RED CELL DISTRIBUTION WIDTH 14.9 % (11.5-14.5); WHITE BLOOD COUNT 5.7 x10^3/uL (4.0-11.0)
[2019-01-22 06:47] LABS: PROTHROMBIN TIME PATIENT 18.2 SEC (11.7-14.0)
[2019-01-22 06:49] LABS: CREATININE 0.9 mg/dL (0.7-1.3); GFR 81.8; POTASSIUM 4.1 mmol/L (3.5-5.1)
[2019-01-22 07:00] VITALS: BP 122/51
[2019-01-22] MEDS ORDERED: DILT240C33 PO (09:06)
[2019-01-22] MEDS ORDERED: TAMS0.4C97 PO (09:06)
[2019-01-22] MEDS ORDERED: ACYC400T PO (09:06)
[2019-01-22] MEDS ORDERED: ZOLP5TAB PO (09:06)
[2019-01-22] MEDS ORDERED: LENA25CA PO (09:06)
[2019-01-22] MEDS ORDERED: GABA300C18 PO (09:06)
[2019-01-22] MEDS ORDERED: METO25TA4 PO (09:06)
[2019-01-22] MEDS ORDERED: DEXA4TAB PO (09:06)
[2019-01-22] MEDS ORDERED: TIMO10DR5 EACHEYE (09:06)
[2019-01-22] MEDS ORDERED: HYDR-3135 PO (09:06)
--- NOTE | 2019-01-22 09:07 | DISCH ---
DISCHARGE INSTRUCTIONS Condition on Discharge Condition on Discharge: Stable Activity After Discharge Activity Instructions for Disc: Resume previous activity Diet after Discharge Diet after Discharge: Regular Diet Texture: Regular Contacting the DR. after DC Call your doctor for: If your condition worsens Treatment/Equipment after DC Adaptive Equipment Issued: None LINDA PATEL MD Jan 22, 2019 09:07
[2019-01-22] MEDS: GABAPENTIN 300 MG CAPSULE. PO SCH (09:13)
[2019-01-22] MEDS: TIMOLOL 0.5% OPHTH SOLUTION 5ML BOTTLE. OU SCH (09:13)
[2019-01-22] MEDS: ACYCLOVIR 200 MG CAPSULE. PO SCH (09:13)
[2019-01-22] MEDS: MAGNESIUM OXIDE 400 MG TABLET PO SCH (09:13)
[2019-01-22] MEDS: CETIRIZINE HCL 10 MG TABLET. PO SCH (09:13)
[2019-01-22] MEDS: MULTIVITAMIN with MINERAL TABLET. PO SCH (09:13)
[2019-01-22] MEDS: PANTOPRAZOLE 40 MG TABLET.DR. PO SCH (09:13)
[2019-01-22] MEDS: METOPROLOL TART IMMED RELEASE 50 MG TABLET. PO SCH (09:13)
[2019-01-22] MEDS: HYDROcodone/APAP 10/325 1 TAB TABLET PO PRN (09:15)
[2019-01-22 11:00] VITALS: BP 135/70
[2019-01-22] MEDS ORDERED: HEPARIN PF 500 UNIT/5 ML DISP.SYRIN. IVP ONE (11:45)
--- NOTE | 2019-01-22 12:24 | NUR ---
Patient discharged to home. Discharge instructions, medications, and follow up appointments discussed with patient and family. Both verbalized understanding. Discussed importance of monitoring for bleeding. Discharge papers given to patient. Port a cath heparin locked and deaccessed. IV removed. Patient has all belongings. Assisted patient out in wheelchair with staff and family at this time and assisted into POV.
== END 2019-01-22 12:20 | disposition home or self-care (01) | DRG 378 ==
LOC: 6 SOUTH 04:43
PROVIDERS: ADMIT Internal Medicine; ATTEND Internal Medicine
DX: K92.2 Gastrointestinal hemorrhage, unspecified (principal); C90.00 Multiple myeloma not having achieved remission; I48.20 Chronic atrial fibrillation, unspecified; D62 Acute posthemorrhagic anemia; D68.8 Other specified coagulation defects; N40.0 Benign prostatic hyperplasia without lower urinary tract symptoms; M19.90 Unspecified osteoarthritis, unspecified site; K21.9 Gastro-esophageal reflux disease without esophagitis; G89.29 Other chronic pain; I10 Essential (primary) hypertension; D69.6 Thrombocytopenia, unspecified; M81.0 Age-related osteoporosis without current pathological fracture; D64.9 Anemia, unspecified; H40.9 Unspecified glaucoma; E86.0 Dehydration; T45.515A Adverse effect of anticoagulants, initial encounter; Z86.718 Personal history of other venous thrombosis and embolism; Z79.01 Long term (current) use of anticoagulants; Z88.0 Allergy status to penicillin; Z88.8 Allergy status to other drugs, medicaments and biological substances; Y92.89 Other specified places as the place of occurrence of the external cause; Z95.0 Presence of cardiac pacemaker
CPT/HCPCS: 36415; 71045; 78278; 80048; 80053; 83735; 85014; 85018; 85025; 85027; 85610; 86850; 86900; 86901; 93005; 93306; 96374; A9560; C9113; J1720; J2270; J3475; J3490; J7030; G0378